=== PATIENT | male | born 1955 | race Caucasian/White ===

== ENCOUNTER 2019-07-12 09:55 | Outpatient (CLI) | payer MEDICARE, OTHER ==
[2019-07-12] MEDS ORDERED: Magnevist 469MG/ML 20 ML VIAL ONE (11:49)
--- NOTE | 2019-07-13 14:19 | MRI ---
MRI OF PELVIS WITH AND WITHOUT IV CONTRAST (PROSTATE PROTOCOL)WITH REVIEW ON INDEPENDENT 3D WORKSTATION 07/13/19 HISTORY: Prostate cancer. Biopsy performed in February 2019. FINDINGS: The prostate measures 4.5 x 3.5 x 5 cm with a volume of 41 mL. No focal abnormal area of diffusion restriction is seen in the peripheral zone to suggest malignant p rocess. No lentiform area of abnormally decreased T2 signal is seen in the transitional zone to suggest a mal ignant process. No abnormal focal arterial enhancement is seen. The prostatic capsule is intact. The seminal vesicles are intact. No pelvic lymphadenopathy is seen. The pelvic sidewall is normal. The perirectal soft ti ssues are normal. There is thickening of the wall of the urinary bladder. No abnormal areas of signal replacement on T1 weighted sequences of the pelvis are seen to suggest os seous metastatic disease. IMPRESSION: PI-RADS 2: Low (clinically significant prostate cancer is unlikely to be present). POS: [facility]
== END 2019-07-12 09:56 | disposition home or self-care (01) ==
LOC: TBSIIMAG 09:55
PROVIDERS: ATTEND Urology
DX: C61 Malignant neoplasm of prostate (principal)
CPT/HCPCS: 72197; 82565; A9579